=== PATIENT | male | born 1980 | race Hispanic/Latino ===

== ENCOUNTER 2020-03-15 10:23 | Emergency (ER) | payer BC, OTHER ==
[~2020-03-15] VITALS: Ht 175.3 cm; Wt 88.5 kg
[2020-03-15 10:34] VITALS: BP 151/73
[2020-03-15 10:38] VITALS: BP 151/73
[2020-03-15] MEDS ORDERED: ADACEL VIAL IM ONE ×2 (10:40→11:00)
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
--- NOTE | 2020-03-15 11:12 | NUR ---
CAT SCAN PATIENT TO CAT SCAN VIA GURNEY WITH SHIMON FROM XRAY.
--- NOTE | 2020-03-15 11:30 | NUR ---
CAT SCAN PATIENT BACK FROM CAT SCAN.
[2020-03-15 11:37] VITALS: BP 134/50
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
[2020-03-15 11:54] VITALS: BP 123/76
== END 2020-03-15 11:55 | disposition home or self-care (01) ==
LOC: ER 10:23
DX: S06.0X1A Concussion with loss of consciousness of 30 minutes or less, initial encounter (principal); S20.212A Contusion of left front wall of thorax, initial encounter; V39.3XXA Occupant (driver) (passenger) of three-wheeled motor vehicle injured in unspecified nontraffic accident, initial encounter; Y93.89 Activity, other specified; Y92.488 Other paved roadways as the place of occurrence of the external cause; Y99.8 Other external cause status
CPT/HCPCS: 70450; 71250; 90471; 90715; 99285